=== PATIENT | female | born 1995 ===

== ENCOUNTER → 2019-04-26 | Outpatient (CLI) | payer BC ==
[~2019-04-26] MED LIST: METO25TA93 PO
== END ==
LOC: LAB 10:11
PROVIDERS: ATTEND Obstetrics & Gynecology
DX: Z11.3 Encounter for screening for infections with a predominantly sexual mode of transmission (principal)
CPT/HCPCS: 87491; 87591

== ENCOUNTER 2019-04-30 18:10 | Inpatient (IN) | payer BC ==
[~2019-04-30] VITALS: Ht 172.7 cm; Wt 68.9 kg
--- NOTE | 2019-04-30 18:15 | ER Report ---
History and Physical Time Seen By MD: 18:11 HPI/ROS CHIEF COMPLAINT: headache HISTORY OF PRESENT ILLNESS: This is a 23 year old female. She is having ongoing headache for the last 36 hours. She was seen at urgent care yesterday. She has some improvement in her headache with medicines there and was found to have a urinary tract infection. Treated with Macrobid. Despite this, the headache has worsened. She is having some chills at times. The headache is worse, now with some neck and back pain. She has nausea, but no vomiting. Denies shortness of breath or chest pain. No abdominal pain. Had some tingling in both hands earlier today, but now gone. No other weakness or numbness. No sore throat or runny nose. Allergies: Coded Allergies: Sulfa (Sulfonamide Antibiotics) (Unverified Allergy, Severe, rash, 04/30/19) Home Meds Reported Medications Nitrofurantoin Monohyd/M-Cryst (MACROBID 100 MG CAPSULE) 100 Mg Capsule, 100 MG PO, CAPSULE 04/30/19 Zolmitriptan (ZOMIG) 5 Mg [place], 5 MG NS PRN, SPRAY 04/30/19 Metoprolol Tartrate (METOPROLOL TARTRATE) 25 Mg Tablet, 12.5 MG PO QDAY, TAB 04/26/19 Reviewed Nurses Notes: Yes Smoking Status: Never Smoker Constitutional Vital Sign - Last 24 Hours 04/30/19 04/30/19 04/30/19 04/30/19 18:17 18:25 18:30 18:40 Temp 98.5 Pulse 89 85 76 Resp 20 B/P (MAP) 143/108 129/99 (109) Pulse Ox 97 99 97 O2 Delivery Room Air 04/30/19 04/30/19 04/30/19 04/30/19 18:55 19:00 19:25 19:30 Pulse 74 84 B/P (MAP) 141/102 (115) 133/96 (108) Pulse Ox 100 97 04/30/19 04/30/19 04/30/19 04/30/19 19:40 19:55 20:00 20:05 Pulse 76 87 83 B/P (MAP) 144/105 (118) Pulse Ox 97 98 96 04/30/19 04/30/19 04/30/19 04/30/19 20:10 20:15 20:20 20:25 Pulse ??? 91 86 87 Pulse Ox 100 98 99 97 04/30/19 04/30/19 04/30/19 04/30/19 20:30 20:35 20:40 20:45 Pulse 84 80 79 76 B/P (MAP) 125/78 (94) Pulse Ox 82 92 93 89 04/30/19 04/30/19 04/30/19 04/30/19 20:50 20:55 21:00 21:05 Pulse 72 74 75 75 B/P (MAP) 135/91 (106) Pulse Ox 91 90 91 93 04/30/19 04/30/19 04/30/19 04/30/19 21:10 21:15 21:20 21:25 Pulse 72 73 79 112 Pulse Ox 94 94 93 98 04/30/19 04/30/19 04/30/19 04/30/19 21:30 21:35 21:40 21:45 Pulse 89 95 103 107 B/P (MAP) 131/87 (102) Pulse Ox 95 99 97 98 04/30/19 04/30/19 04/30/19 04/30/19 21:50 21:55 22:00 22:05 Pulse 94 95 86 81 B/P (MAP) 137/89 (105) Pulse Ox 97 97 95 97 04/30/19 04/30/19 04/30/19 04/30/19 22:20 22:30 22:35 22:40 Pulse 100 93 82 B/P (MAP) 132/101 (111) Pulse Ox 98 96 95 04/30/19 04/30/19 04/30/19 04/30/19 23:00 23:10 23:15 23:30 Pulse 74 87 B/P (MAP) 135/83 (100) 131/84 (100) Pulse Ox 94 94 04/30/19 05/01/19 23:45 00:00 Pulse 80 B/P (MAP) 140/92 (108) Pulse Ox 96 Intake and Output 04/30/19 04/30/19 05/01/19 15:03 23:03 07:03 Intake Total 2000 ml Balance 2000 ml Physical Exam General Appearance: The patient is alert. No immediate need for airway protection. No acute distress. Non-toxic in appearance. Eyes: Pupils are equal, round. Reactive to light. No pallor, injection or icterus. Extraocular movements are intact. ENT: Mucous membranes are moist. Normal oral mucosa. Posterior oropharynx is normal. Normal nasal mucosa. Normal tympanic membranes and canals. Neck: Supple and non tender. No lymphadenopathy. Respiratory: Breathing easily and unlabored. Lungs are clear to auscultation. There are no retractions or accessory muscle use. Cardiovascular: Regular rate and rhythm. No murmurs, gallops or rubs. Normal capillary refill. No edema. No carotid bruits. Gastrointestinal: Abdomen is soft and non tender. Nondistended. No rebound or guarding. No masses or organomegaly. Normal active bowel sounds. No costovertebral angle tenderness with percussion. Genitourinary: Neurological: Alert and oriented x3. Cranial nerves II through XII show no acute deficits on my exam. No focal neurologic deficits in the extremities. Skin: Warm and dry. No rashes. Musculoskeletal: Extremities are nontender. Full range of motion. No tenderness in palpation of the cervical, thoracic and lumbar spine. DIFFERENTIAL DIAGNOSIS: After history and physical exam, differential diagnosis was considered for patient with ongoing headache with infectious symptoms. Significant concern for worsening infection and possible meningitis. Medical Decision Making Data Points Result Diagram: 04/30/19 1825 04/30/19 1825 Laboratory Hematology Test 04/30/19 18:25 White Blood Count 7.2 k/uL (4.5-11.0) Red Blood Count 5.16 M/uL (4.17-5.56) Hemoglobin 15.6 g/dL (12.0-16.0) Hematocrit 44.6 % (34.0-47.0) Mean Corpuscular Volume 86.4 fL (80.0-96.0) Mean Corpuscular Hemoglobin 30.2 pg (26.0-33.0) Mean Corpuscular Hemoglobin Concent 34.9 g/dL (32.0-36.0) Red Cell Distribution Width 13.8 % (11.5-14.5) Platelet Count 258 K/uL (150-450) Mean Platelet Volume 8.2 fL (7.2-11.1) Neutrophils (%) (Auto) 51.3 % (39.4-72.5) Lymphocytes (%) (Auto) 33.4 % (17.6-49.6) Monocytes (%) (Auto) 13.6 % (4.1-12.4) H Eosinophils (%) (Auto) 1.0 % (0.4-6.7) Basophils (%) (Auto) 0.7 % (0.3-1.4) Nucleated RBC Relative Count (auto) 0.1 /100WBC Neutrophils # (Auto) 3.7 K/uL (2.0-7.4) Lymphocytes # (Auto) 2.4 K/uL (1.3-3.6) Monocytes # (Auto) 1.0 K/uL (0.3-1.0) Eosinophils # (Auto) 0.1 K/uL (0.0-0.5) Basophils # (Auto) 0.1 K/uL (0.0-0.1) Nucleated RBC Absolute Count (auto) 0.01 K/uL Chemistry Test 04/30/19 18:25 Sodium Level 139 mmol/L (137-145) Potassium Level 3.5 mmol/L (3.5-5.0) Chloride Level 104 mmol/L (98-107) Carbon Dioxide Level 22 mmol/L (22-31) Blood Urea Nitrogen 12 mg/dl (7-18) Creatinine 0.90 mg/dl (0.52-1.04) Glomerular Filtration Rate Calc > 60.0 Random Glucose 96 mg/dl (75-110) Lactate 1.3 mmol/L (0.7-2.1) Calcium Level 9.6 mg/dl (8.4-10.2) Total Bilirubin 0.8 mg/dl (0.2-1.3) Aspartate Amino Transf (AST/SGOT) 19 U/L (0-35) Alanine Aminotransferase (ALT/SGPT) 24 U/L (0-56) Alkaline Phosphatase 78 U/L (0-126) Total Protein 7.8 g/dl (6.3-8.2) Albumin 4.6 g/dl (3.5-5.0) Human Chorionic Gonadotropin, Qual Negative (NEGATIVE) Serology Test 04/30/19 21:54 Coagulation Test 04/30/19 18:25 Prothrombin Time 13.9 seconds (12.0-14.4) Prothromb Time International Ratio 1.07 Activated Partial Thromboplast Time 33 seconds (23-35) Urinalysis Test 04/30/19 19:12 Urine Color [place] Urine Clarity Slightly-cloudy Urine pH 6.0 pH (4.8-9.5) Urine Specific [place] 1.033 Urine Protein 30 mg/dL (NEGATIVE) Urine Glucose (UA) Negative mg/dL (NEGATIVE) Urine Ketones Trace mg/dL (NEGATIVE) Urine Blood Negative (NEGATIVE) Urine Nitrite Negative (NEGATIVE) Urine Bilirubin Negative (NEGATIVE) Urine Urobilinogen 4.0 mg/dL (0.2-1.9) Urine Leukocyte Esterase Small (NEGATIVE) Urine RBC 8 /HPF (0-2/HPF) Urine WBC 4 /HPF (0-5/HPF) Urine Squamous Epithelial Cells Many /LPF (</=FEW) Urine Bacteria Few /HPF (NONE-FEW) Urine Hyaline Casts Few /LPF (NONE-FEW) Urine Mucus Few /HPF (NONE-FEW) Microbiology Microbiology Date/Time Source Procedure Growth Status 04/30/19 21:54 Cerebrospinal Fluid Gram Stain - Final Resulted 04/30/19 21:54 Cerebrospinal Fluid CSF Culture Pending Resulted EKG/Imaging Imaging CT Head without contrast Indication: Headache. Comparison: None available Technique: Axial CT images were obtained through the brain from the skull base to the vertex without administration of IV contrast. Reformatted coronal and sagittal images were also obtained. One of the following dose optimization techniques was utilized in the performance of this exam: automated exposure control; adjustment of the mA and/or kV according to the patient's size; or use of an iterative reconstruction technique. Specific details can be referenced in the facility's radiology CT exam operational policy. Findings: No evidence of mass, mass effect, or midline shift. No acute intracranial hemorrhage or acute territorial infarction. No extra-axial fluid collection or hydrocephalus. No abnormal density. Han/white matter differentiation appears normal. Bony structures show no fractures or lesions. The visualized paranasal sinuses and mastoid air cells are clear. IMPRESSION: 1. Negative unenhanced CT of the head. Report Dictated By: Giovanni Bustamante at 04/30/2019 7:31 PM ED Course/Re-evaluation Clinical Indication for ER IV: Hydration, IV Access ED Course After my initial evaluation as noted above, strong concern for possible meningitis. She doesn't have a fever right now but she has been feeling feverish. Labs were obtained and her white count is normal. But still severe headache. Patient did have Phenergan and Benadryl as well as a liter of normal saline to try and help with headache and symptoms. CT scan obtained which was negative. This point I talked to the patient about doing a lumbar puncture. We discussed risks and benefits and we went ahead with this. Lumbar puncture was a traumatic tap initially but cleared up and was clear at that point. The patient did have a couple of doses of fentanyl, one prior to the spinal tap and one afterwards which helped with her headache. CSF studies to come back showing elevated cellular and protein as well as a Gram stain that shows white cells and gram-positive cocci. I spoke with Dr. Francesca Nunez, hospitalist, who accepted the patient for admission. I'm giving the patient 2 g of IV Rocephin, IV vancomycin, after reviewing up-to-date current recommendations for bacterial meningitis treatment. Also having dexamethasone 10 mg IV push based on the same recommendations. I spoke with the patient and also called her mother, Alyson at , at the patient's request and explained the situation and treatment. Decision to Disposition Date: May 01, 2019 Decision to Disposition Time: 00:08 Depart Departure Latest Vital Signs Vital Signs Date Time Temp Pulse Resp B/P (MAP) Pulse Ox O2 Delivery O2 Flow Rate FiO2 05/01/19 00:00 140/92 (108) 04/30/19 23:45 80 96 04/30/19 18:17 98.5 20 Room Air Impression: Primary Impression: Acute bacterial meningitis Condition: Condition Unchanged [facility] Apr 30, 2019 18:15
[2019-04-30] MEDS ORDERED: ZOLM5SPR NS (18:22)
[2019-04-30] MEDS ORDERED: NITR-105 PO (18:31)
[2019-04-30] MEDS ORDERED: PROMETHAZINE 25 MG/ML 1 ML AMP IVP ONE (18:35)
[2019-04-30] MEDS ORDERED: NS(*) 0.9% 1000 ML BAG 1,000 ML IV ONE ×2 (18:35→20:20)
[2019-04-30] MEDS ORDERED: diphenhydrAMINE 50 MG/ML VIAL IVP ONE (18:35)
[2019-04-30 18:43] LABS: PLATELET COUNT, AUTOMATED 258 K/uL (150-450)
[2019-04-30 18:48] LABS: INR 1.07
--- NOTE | 2019-04-30 19:41 | RADIOLOGY IMAGING REPORT ---
[place] [facility] [place] Anayeli Barrientos : 1995 MR: [id number] V: [id number] EXAM DATE: ORDERING PHYSICIAN: ANNABELLE SANTIAGO TECHNOLOGIST: Location: [facility] [place] Patient: Anayeli Barrientos : 1995 Visit/Account:[id number] Date of Sevice: 04/30/2019 CT Head without contrast Indication: Headache. Comparison: None available Technique: Axial CT images were obtained through the brain from the skull base to the vertex without administration of IV contrast. Reformatted coronal and sagittal images were also obtained. One of the following dose optimization techniques was utilized in the performance of this exam: autom ated exposure control; adjustment of the mA and/or kV according to the patient's size; or use of an i terative reconstruction technique. Specific details can be referenced in the facility's radiology CT exam operational policy. Findings: No evidence of mass, mass effect, or midline shift. No acute intracranial hemorrhage or acute territorial infarction. No extra-axial fluid collection or hydrocephalus. No abnormal density. Han/white matter differentiat ion appears normal. Bony structures show no fractures or lesions. The visualized paranasal sinuses and mastoid air cells are clear. IMPRESSION: 1. Negative unenhanced CT of the head. Report Dictated By: Giovanni Bustamante at 04/30/2019 7:31 PM Report E-Signed By: Giovanni Bustamante at 04/30/2019 7:34 PM [id number]
[2019-04-30] MEDS ORDERED: fentaNYL CITR 100 MCG/2 ML AMP IVP ONE ×2 (20:15→22:15)
[2019-05-01] MEDS ORDERED: VANCOMYCIN(*) 1 GM VIAL 1.75 GM in NS(*) 0.9% 250 ML BAG 250 ML IVPB ONE (00:05)
[2019-05-01] MEDS ORDERED: cefTRIAXone(*) 2 GM VIAL 2 GM in NS(*) 0.9% 100 ML MINI-BAG 100 ML IVPB ONE (00:05)
[2019-05-01] MEDS ORDERED: DEXAMETHASONE SOD PHOS 10MG/ML IVP ONE (00:05)
[2019-05-01] MEDS ORDERED: fentaNYL CITR 100 MCG/2 ML AMP IVP ONE (00:45)
[2019-05-01 01:12] VITALS: BP 134/87
[2019-05-01] MEDS ORDERED: NS(*) 0.9% 500 ML BAG 500 ML ONE (02:06)
[2019-05-01] MEDS ORDERED: fentaNYL CITR 100 MCG/2 ML AMP IVP PRN (02:35)
[2019-05-01] MEDS ORDERED: NS(*) 0.9% 1000 ML BAG 1,000 ML IV PRN ×2 (02:46)
[2019-05-01] MEDS ORDERED: ONDANSETRON 4 MG/2 ML VIAL IVP PRN (02:50)
[2019-05-01] MEDS ORDERED: INFLUENZA VIRUS VAC 0.5ML SYR IM ONLY ONE (02:50)
[2019-05-01] MEDS ORDERED: PROMETHAZINE 25 MG/ML 1 ML AMP IVP PRN (02:50)
--- NOTE | 2019-05-01 03:19 | History & Physical ---
History of Present Illness Chief Complaint Headache, stiff neck History of Present Illness The patient is a 23 year old female who states that she woke up on Wednesday morning not feeling well. She had been in her usual state of good health the evening prior. She noted a headache which was different than her usual migraine headache. She used her Zomig nasal spray and it did not help her headache pain at all. The patient became concerned because Zomig relieves her migraine pain 100% of the time. She presented to Urgent Care and although she was asymptomatic, a UA was performed and the patient was told she had a UTI. She was sent home on an antibiotic for her UTI and pain medication for her headache. She noted her headache only worsened and she then developed a stiff neck and back pain. She denies having fever or chills. When her symptoms worsened, she presented to [facility] ER on Wednesday evening for further evaluation. In the ER, the patient's headache persisted. Her lab work was unremarkable. A lumbar puncture was performed and was notable for many WBCs (108 using 3rd tube) and slightly elevated protein. CSF glucose was normal. Blood and CSF cultures were ordered. A herpes simplex DNA PCR was also ordered on the CSF. Ceftriaxone 2g and vancomycin 1.75g were ordered and dexamethasone 10mg was given IV. The patient was recommended for admission for meningitis. History Problems: (1) IBS (irritable bowel syndrome) (2) HTN (hypertension) (3) Migraine Home Meds Reported Medications Nitrofurantoin Monohyd/M-Cryst (MACROBID 100 MG CAPSULE) 100 Mg Capsule, 100 MG PO, CAPSULE 04/30/19 Zolmitriptan (ZOMIG) 5 Mg [place], 5 MG NS PRN, SPRAY 04/30/19 Metoprolol Tartrate (METOPROLOL TARTRATE) 25 Mg Tablet, 12.5 MG PO QDAY, TAB 04/26/19 Allergies: Coded Allergies: Sulfa (Sulfonamide Antibiotics) (Unverified Allergy, Severe, rash, 04/30/19) Patient History: FH: pancreatic cancer Maternal Uncle FHx: heart disease Maternal family Other Social/Family Hx The patient recently moved to [place] to attend grad school at the [employer] in the [employer] program. She is single. Hx Smoking: No Smoking Status: Never Smoker Hx Alcohol Use: No Social Drug Use: Never History of IV Drug Use: No Review of Systems All Systems Reviewed/Normal: Yes, Except as Noted Constitutional: No Fever, No Chills Neurological: Other (Hands were tingly earlier in the day.) Eyes: No Vision Change Respiratory: No Shortness of Breath, No Cough Gastrointestinal: Nausea (With severe headache.) Genitourinary: No Dysuria Musculoskeletal: Pain (Back pain with stiff neck and headache.) Exam Vital Signs Vital Signs Date Time Temp Pulse Resp B/P (MAP) Pulse Ox O2 Delivery O2 Flow Rate FiO2 05/01/19 01:12 98.5 72 16 134/87 (103) 95 Room Air General Appearance: Alert, Awake, No Acute Distress, Afebrile Neuro: No Gross deficits Eyes: PERRLA Neck: Other (Passive bending forward of the head and neck caused pain in the neck and back.) Cardiovascular: Regular Rate and Rhythm, No Edema Respiratory: Clear to Auscultation GI: Abd Soft and Non-Tender Lymph: Cervical Nodes Benign Extremities: Warm, Perfused Integumentary: Skin Intact without Lesion / Mass Psych: Alert & Oriented X3, Appropriate Mood & Affect Medical Decision Making Data Points Result Diagram: 04/30/19182404/30/191824 Item Value Date Time CSF Appearance C 04/30/192153 CSF Color Colorless 04/30/192153 CSF WBC 108 /mm3 H 04/30/192153 CSF RBC 219 /mm3 04/30/192153 CSF Neutrophils 51 % 04/30/192153 CSF Lymphocytes 41 % 04/30/192153 CSF Monocytes 8 % 04/30/192153 CSF Glucose 47 mg/dl 04/30/192153 CSF Total Protein 55 mg/dl H 04/30/192153 Blood, urine and CSF cultures pending. EKG / Imaging Imaging FACILITY: [facility] PATIENT NAME: Anayeli Barrientos : 1995 MR: [id number] V: [id number] EXAM DATE: ORDERING PHYSICIAN: ANNABELLE SANTIAGO TECHNOLOGIST: Location: [facility] Patient: Anayeli Barrientos : 1995 Visit/Account:[id number] Date of Sevice: 04/30/2019 CT Head without contrast Indication: Headache. Comparison: None available Technique: Axial CT images were obtained through the brain from the skull base to the vertex without administration of IV contrast. Reformatted coronal and sagittal images were also obtained. One of the following dose optimization techniques was utilized in the performance of this exam: automated exposure control; adjustment of the mA and/or kV according to the patient's size; or use of an iterative reconstruction technique. Specific details can be referenced in the facility's radiology CT exam operational policy. Findings: No evidence of mass, mass effect, or midline shift. No acute intracranial hemorrhage or acute territorial infarction. No extra-axial fluid collection or hydrocephalus. No abnormal density. Han/whi te matter differentiation appears normal. Bony structures show no fractures or lesions. The visualized paranasal sinuses and mastoid air cells are clear. IMPRESSION: 1. Negative unenhanced CT of the head. Report Dictated By: Giovanni Bustamante at 04/30/2019 7:31 PM Report E-Signed By: Giovanni Bustamante at 04/30/2019 7:34 PM [id number] Assessment and Plan Problems: (1) Meningitis Status: Acute Assessment & Plan: Will admit and cover with antibiotics including ceftriaxone 2g IV q 12hrs and vancomycin 1.5g IV q [address] in isolation. She does have a history of cold sores so will add acyclovir 700mg IV q 8 hours as well. Herpes simplex DNA PCR is pending on her CSF fluid. Dexamethasone 10mg IV given in ER. Will continue dexamethasone 4mg IV q 6 hours. A bacterial antigen panel was ordered in the ER and then cancelled by lab (no reason given). Blood and CSF cultures are pending. (2) Urinary tract infection Status: Acute Assessment & Plan: Urinalysis in the ER did show a few WBCs but also had many squamous epithelial cells. Culture is pending. The patient is asymptomatic. Likely contaminated urine. Ceftriaxone should cover possible urinary pathogens while awaiting urine culture. Time Spent on Plan of Care: < 30 min Venous Thromboembolism Antithrombotics Is Pt On Any Antithrombotics?: No Prophylaxis Tx Contraindicated Pharmacological Contraindicati: Medical Contraindication (Recent lumbar punctue.) Exam Sepsis Risk: No Definite Risk JENIFER LUA MD May 01, 2019 03:19
[2019-05-01] MEDS: ACYCLOVIR IVPB SCH ×3 (03:36→18:33)
[2019-05-01] MEDS: NS 0.9% IVPB SCH ×3 (03:36→18:33)
[2019-05-01 04:00] VITALS: BP 113/73
[2019-05-01] MEDS: DEXAMETHASONE SOD 4 MG/ML VIAL IVP SCH ×3 (06:24→17:07)
[2019-05-01 06:55] VITALS: BP 121/69
[2019-05-01] MEDS: LACTOBACILLUS ACIDOPHILUS TAB PO SCH ×2 (08:03→17:07)
[2019-05-01] MEDS: METOPROLOL SUCC XL 25 MG TABCR PO SCH (08:04)
[2019-05-01 08:47] VITALS: Ht 172.7 cm; Wt 68.9 kg
--- NOTE | 2019-05-01 10:03 | Pharmacy Note ---
Vancomycin Management Note Vanco Dosing Note Pharmacy Services Pharmacokinetic Dosing Consult, Vancomycin Pharmacy has been consulted for dosing and monitoring of vancomycin for 23 YO FEMALE for bacterial meningitis. Pertinent Past Medical History: Antibiotics prior to admission; Macrobid for UTI Additional Antimicrobials: acyclovir 700mg q8h Start 05/01 ceftriaxone 2g q12h Start 05/01 vanco 1250mg q12h Start 05/01 Patient Information: Height (cm): 17.27 cm Actual Body Weight (ABW): 69 kg Pertinent Lab Tests WHITE BLOOD COUNT 7.2 NEUTROPHILS 51.3 BLOOD UREA NITROGEN 12 SCR 0.9 VANCOMYCIN TROUGH VANCOMYCIN RANDOM Culture Results: BLOOD CSF - pending viral results, slightly elevated protein, normal glucose Assessment: CrCl ~85ml/min Renal function is stable Vancomycin Monitoring Assessment Goal Vancomycin Trough Level: 15-20 Plan: 1) Vancomycin 25 mg/kg loading dose (based on ABW): 1750 mg IV x 1 2) Vancomycin maintenance dose (based on ABW): 1250mg q12h 3) Vancomycin monitoring: vanco level to be drawn 05/02 at 1300, before the 4th dose Pharmacy will continue to monitor daily and adjust regimen as appropriate. Thank you for the consult. GIGI DEE May 01, 2019 07:49
--- NOTE | 2019-05-01 10:21 | Hospitalist Progress Note ---
Subjective Progress Notes Subjective This patient was admitted for possible meningitis. She had no acute events overnight. Patient Complains of: Cardiovascular: No: Chest Pain Respiratory: No: Shortness of Breath Physical Exam Vital Signs Date Time Temp Pulse Resp B/P (MAP) Pulse Ox O2 Delivery O2 Flow Rate FiO2 05/01/19 06:55 99.1 78 12 121/69 (86) 97 Room Air Intake and Output 05/01/19 07:03 Intake Total 2905 ml Balance 2905 ml Intake Oral 600 ml IV Total 2305 ml # Voids 2 Neuro: No Gross deficits Cardiovascular: Regular Rate and Rhythm Respiratory: Clear to Auscultation Result Diagram: 04/30/19182404/30/191824 Assessment and Plan Problems: (1) Meningitis Status: Acute Assessment & Plan: She present with headache and nuchal rigidity. Her CSF showed an elevated WBC and elevated protein. A gram stain showed gram positive cocci, but suspect this is a contaminant. HSV testing is pending. She remains on treatment with ceftriaxone, vancomycin, acyclovir, and steroids. We will continue with current management until her cultures are final. Her symptoms have completely resolved. (2) Asymptomatic bacteriuria Assessment & Plan: Her urine showed small leukocytes and few bacteria, but was a contaminated sample. She is asymptomatic from a urinary perspective. Exam Sepsis Risk: No Definite Risk JOHNNA GOMES DO May 01, 2019 10:21
[2019-05-01 11:20] VITALS: BP 118/75
[2019-05-01] MEDS ORDERED: cefTRIAXone 2 GM VIAL IVP SCH (12:30)
[2019-05-01] MEDS: cefTRIAXone 2 GM VIAL IVP SCH (12:44)
[2019-05-01] MEDS: VANCOMYCIN(*) 1 GM VIAL 1 GM, VANCOMYCIN (*) 0.5 GM VIAL 0.25 GM in NS(*) 0.9% 250 ML B... IVPB SCH (14:00)
[2019-05-01] MEDS ORDERED: NS(*) 0.9% 250 ML BAG 250 ML ONE (18:22)
[2019-05-01 20:40] VITALS: BP 112/73
[2019-05-02 00:01] VITALS: BP 122/63
[2019-05-02] MEDS: DEXAMETHASONE SOD 4 MG/ML VIAL IVP SCH ×5 (00:12→23:49)
[2019-05-02] MEDS: cefTRIAXone 2 GM VIAL IVP SCH ×3 (00:13→23:51)
[2019-05-02] MEDS: VANCOMYCIN(*) 1 GM VIAL 1 GM, VANCOMYCIN (*) 0.5 GM VIAL 0.25 GM in NS(*) 0.9% 250 ML B... IVPB SCH ×3 (01:37→22:15)
[2019-05-02] MEDS: ACYCLOVIR IVPB SCH ×3 (03:05→18:36)
[2019-05-02] MEDS: NS 0.9% IVPB SCH ×3 (03:05→18:36)
[2019-05-02 03:07] VITALS: BP 102/58
[2019-05-02 06:18] LABS: PLATELET COUNT, AUTOMATED 242 K/uL (150-450)
[2019-05-02 06:56] VITALS: BP 112/76
--- NOTE | 2019-05-02 08:11 | Antimicrobial Stewardship ---
Antimicrobial Time Out Antimicrobial Stewardship MD Service: Hospitalist Indications: Other (Meningitis) Antimicrobial Used Acyclovir, Rocephin, Vancomycin and Ampicillin started on 05/01 with Ampicillin discontinued on 05/01. Start Date: May 01, 2019 Culture Results: Yes (Cultures pending.) Eligible for PO Conversion Eligable for PO Conversion: No Comments Comments Patient's symptoms have resolved; continue with current antibiotics until cu lture results are final. JENIFER CLEMONS May 02, 2019 08:11
[2019-05-02] MEDS: LACTOBACILLUS ACIDOPHILUS TAB PO SCH ×2 (08:24→17:35)
[2019-05-02] MEDS: METOPROLOL SUCC XL 25 MG TABCR PO SCH (08:24)
--- NOTE | 2019-05-02 11:53 | Hospitalist Progress Note ---
Subjective Progress Notes Subjective Headache is now resolved. Neck pain has been resolved for over 24 hours. Overall, feeling much better. Physical Exam Vital Signs Date Time Temp Pulse Resp B/P (MAP) Pulse Ox O2 Delivery O2 Flow Rate FiO2 05/02/19 09:15 96 Room Air 05/02/19 06:56 98.1 57 16 112/76 (88) Intake and Output 05/02/19 07:03 Intake Total 2883 ml Balance 2883 ml Intake Oral 1522 ml IV Total 1361 ml # Voids 1 # Bowel Movements 1 General Appearance: Alert, Awake, No Acute Distress Neuro: Other (No nuchal rigidity) Cardiovascular: Regular Rate and Rhythm Respiratory: Clear to Auscultation Result Diagram: 05/02/1952105/02/19521 Assessment and Plan Problems: (1) Meningitis Status: Acute Assessment & Plan: She presented with headache for 2 days prior to admission and nuchal rigidity the day of admission. Her CSF showed an elevated WBC and elevated protein. A gram stain showed gram positive cocci, but suspect this is a contaminant. HSV and West Nile testing are pending. She remains on treatment with ceftriaxone, vancomycin, acyclovir, and steroids. We will continue with current management until her cultures are final. Her symptoms have completely resolved. (2) Asymptomatic bacteriuria Assessment & Plan: Her urine showed small leukocytes and few bacteria, but was a contaminated sample. She is asymptomatic from a urinary perspective. Exam Sepsis Risk: No Definite Risk JOSE PARRA MD May 02, 2019 11:53
--- NOTE | 2019-05-02 13:59 | Pharmacy Note ---
Vancomycin Management Note Vanco Dosing Note Vancomycin trough 5.97 after 3 doses so increased to 1.25 gm IV q8h with next trough 05/03/19 at 1300. SOLITARIO HENSLEY May 02, 2019 13:59
[2019-05-02 15:39] VITALS: BP 123/73
[2019-05-02 19:16] VITALS: BP 118/71
[2019-05-02] MEDS: ACETAMINOPHEN 325 MG TAB PO PRN (19:46)
[2019-05-02 23:24] VITALS: BP 104/61
[2019-05-03 03:32] VITALS: BP 113/62
[2019-05-03] MEDS: NS 0.9% IVPB SCH (03:34)
[2019-05-03] MEDS: ACYCLOVIR IVPB SCH (03:34)
[2019-05-03] MEDS: ACETAMINOPHEN 325 MG TAB PO PRN (05:08)
[2019-05-03] MEDS: VANCOMYCIN(*) 1 GM VIAL 1 GM, VANCOMYCIN (*) 0.5 GM VIAL 0.25 GM in NS(*) 0.9% 250 ML B... IVPB SCH ×3 (05:23→21:34)
[2019-05-03] MEDS: DEXAMETHASONE SOD 4 MG/ML VIAL IVP SCH ×3 (05:23→17:50)
[2019-05-03 07:25] VITALS: BP 118/72
[2019-05-03] MEDS: LACTOBACILLUS ACIDOPHILUS TAB PO SCH ×2 (09:09→17:35)
[2019-05-03] MEDS: METOPROLOL SUCC XL 25 MG TABCR PO SCH (09:09)
--- NOTE | 2019-05-03 11:24 | Hospitalist Progress Note ---
Subjective Progress Notes Subjective She reports some lingering headache. Seems to be slightly worse when up. No N/V. No fevers. Physical Exam Vital Signs Date Time Temp Pulse Resp B/P (MAP) Pulse Ox O2 Delivery O2 Flow Rate FiO2 05/03/19 07:25 98.4 47 118/72 (87) 95 Room Air 05/03/19 03:32 12 Intake and Output 05/03/19 07:03 Intake Total 1925.5 ml Balance 1925.5 ml Intake Oral 860 ml IV Total 1065.5 ml # Voids 1 General Appearance: Alert, Awake Neuro: No Gross deficits Neck: Other (Normal ROM) Psych: Alert & Oriented X3 Result Diagram: 05/02/1952105/02/19521 Assessment and Plan Problems: (1) Meningitis Status: Acute Assessment & Plan: She presented with headache for 2 days prior to admission and nuchal rigidity the day of admission. Her CSF showed an elevated WBC and elevated protein. A gram stain showed gram positive cocci, but suspect this is a contaminant. HSV by PCR is negative. West Nile testing is pending. She remains on treatment with IV ceftriaxone, vancomycin, acyclovir, and steroids. We will stop acyclovir today, but continue with current management until her bacterial cultures are final. Her symptoms have improved significantly. (2) Asymptomatic bacteriuria Assessment & Plan: Her urine showed small leukocytes and few bacteria, but was a contaminated sample. She is asymptomatic from a urinary perspective. Exam Sepsis Risk: No Definite Risk AKILA LUA MD May 03, 2019 11:24
[2019-05-03 11:52] VITALS: BP 121/73
[2019-05-03] MEDS: cefTRIAXone 2 GM VIAL IVP SCH (11:56)
--- NOTE | 2019-05-03 14:10 | Pharmacy Note ---
Vancomycin Management Note Vanco Dosing Note Vancomycin trough today was 10.02 so will continue with 1.25 g IV q8h with the next trough due tomorrow 05/05/19 at 1300. SOLITARIO HENSLEY May 03, 2019 14:09
[2019-05-03 14:20] VITALS: BP 113/69
[2019-05-03 20:36] VITALS: BP 122/79
[2019-05-04] MEDS: cefTRIAXone 2 GM VIAL IVP SCH (00:18)
[2019-05-04] MEDS: DEXAMETHASONE SOD 4 MG/ML VIAL IVP SCH ×2 (00:18→06:13)
[2019-05-04 00:20] VITALS: BP 110/62
[2019-05-04 05:52] LABS: PLATELET COUNT, AUTOMATED 318 K/uL (150-450)
[2019-05-04] MEDS: VANCOMYCIN(*) 1 GM VIAL 1 GM, VANCOMYCIN (*) 0.5 GM VIAL 0.25 GM in NS(*) 0.9% 250 ML B... IVPB SCH (06:13)
[2019-05-04 07:27] VITALS: BP 122/74
[2019-05-04] MEDS: METOPROLOL SUCC XL 25 MG TABCR PO SCH (09:22)
[2019-05-04] MEDS: LACTOBACILLUS ACIDOPHILUS TAB PO SCH (09:23)
--- NOTE | 2019-05-04 09:31 | Hospitalist Depart ---
Discharge Summary Reason for Hosp/Final Diag: (1) Meningitis Status: Acute Hospital Course & Plan: She presented with headache for 2 days prior to admission and nuchal rigidity the day of admission. Her CSF showed an elevated WBC and elevated protein. A gram stain showed gram positive cocci, but no growth was seen and this is believed to be a contaminant. HSV by PCR is negative. West Nile testing is pending. All antimicrobials have been discontinued. She likely had a mild viral meningitis. (2) Asymptomatic bacteriuria Hospital Course & Plan: Her urine showed small leukocytes and few bacteria, but was a contaminated sample. She is asymptomatic from a urinary perspective. Departure Latest Vital Signs Vital Signs 05/04/19 07:27 Temp 97.9 Pulse 43 Resp 24 B/P (MAP) 122/74 (90) Pulse Ox 93 O2 Delivery Room Air Weight (Pounds): 152 Result Diagram: 05/04/1952205/04/19522 Condition: Improved Discharge: Home, Self Care Discharge Instructions Home Meds Reported Medications Zolmitriptan (ZOMIG) 5 Mg [place], 5 MG NS PRN, SPRAY 04/30/19 Metoprolol Tartrate (METOPROLOL TARTRATE) 25 Mg Tablet, 12.5 MG PO QDAY, TAB 04/26/19 Discontinued Reported Medications Nitrofurantoin Monohyd/M-Cryst (MACROBID 100 MG CAPSULE) 100 Mg Capsule, 100 MG PO, CAPSULE 04/30/19 Diet: Regular Activity: As Tolerated Venous Thromboembolism Antithrombotics Is Pt On Any Antithrombotics?: No JOHNNA GOMES DO May 04, 2019 09:31
== END 2019-05-04 10:45 | disposition home or self-care (01) | DRG 96 ==
LOC: ER 18:12 → MED 05-01 00:02
PROVIDERS: ADMIT Internal Medicine; ATTEND Internal Medicine
PROC: 009U3ZX Drainage of Spinal Canal, Percutaneous Approach, Diagnostic (ICD-10-PCS; principal; 2019-04-30)
DX: G00.9 Bacterial meningitis, unspecified (principal); K58.9 Irritable bowel syndrome, unspecified; I10 Essential (primary) hypertension; G43.909 Migraine, unspecified, not intractable, without status migrainosus; Z88.2 Allergy status to sulfonamides
CPT/HCPCS: 36415; 70450; 80202; 81001; 82040; 82247; 82310; 82374; 82435; 82565; 82945; 82947; 83605; 84075; 84132; 84155; 84157; 84295; 84450; 84460; 84520; 84703; 85025; 85610; 85730; 86788; 87040; 87070; 87088; 87205; 87529; 89050; 96361; 96365; 96375; 99285; J0133; J0696; J1100; J1200; J2550; J3010; J3370; J7030; J7050